=== PATIENT | male | born 1960 | race Caucasian/White ===

== ENCOUNTER 2018-07-03 09:06 | Outpatient (REF) | payer MEDICAID, SELFPAY ==
[2018-07-03 22:24] LABS: Anion Gap 9.8 mmol/L (3-11); BUN 19 mg/dL (7-18); CO2 26.2 mmol/L (21.0-32.0); CREATININE 0.81 mg/dL (0.70-1.30); Calcium 9.3 mg/dL (8.5-10.1); Chloride 102 mmol/L (98-107); Glucose 95 mg/dL (70-100); Potassium 4.5 mmol/L (3.5-5.1); Sodium 138 mmol/L (136-145)
[2018-07-07 10:37] LABS: PSA, Screening 0.4 ng/ml (0-4.5)
== END 2018-07-03 09:26 ==
LOC: NCHCN 09:06
PROVIDERS: PCP Internal Medicine; Visit Provider Internal Medicine
DX: R03.0 Elevated blood-pressure reading, without diagnosis of hypertension (principal); R05 Cough; Z12.5 Encounter for screening for malignant neoplasm of prostate; E66.9 Obesity, unspecified; Z00.00 Encounter for general adult medical examination without abnormal findings
CPT/HCPCS: 80048; 84153

== ENCOUNTER 2020-08-02 15:51 | Outpatient (REF) | payer MEDICAID, SELFPAY ==
[2020-08-02 15:44] LABS: ALT 39 U/L (16-63); AST 29 U/L (15-37); Albumin 3.9 g/dL (3.4-5.0); Alkaline Phosphatase 112 U/L (46-116); Anion Gap 9.7 mmol/L (3-11); BUN 31 mg/dL (7-18); Bilirubin, Total 0.5 mg/dL (0.2-1.0); CO2 26.3 mmol/L (21.0-32.0); CREATININE 0.8 mg/dL (0.70-1.30); Calcium 9.1 mg/dL (8.5-10.1); Calculated LDL 133 mg/dL (<100); Chloride 106 mmol/L (98-107); Cholesterol 202 mg/dL (<200); Glucose 105 mg/dL (74-106); HDL Cholesterol 50 mg/dL (40-60); Potassium 4.6 mmol/L (3.5-5.1); Sodium 142 mmol/L (136-145); Total Protein 7.1 g/dL (6.4-8.2); Triglyceride 96 mg/dL (<150)
== END 2020-08-02 15:52 | disposition home or self-care (01) ==
LOC: NCHCN 15:51
PROVIDERS: PCP Internal Medicine; Visit Provider Internal Medicine
DX: E03.0 Congenital hypothyroidism with diffuse goiter (principal); E78.5 Hyperlipidemia, unspecified
CPT/HCPCS: 80053; 80061

== ENCOUNTER 2020-08-16 01:43 | Outpatient (CLI) | payer MEDICAID, SELFPAY ==
--- NOTE | 2020-08-16 10:36 | DI.RAD_ITS ---
Exam(s) XR ARTHRITIS SERIES EXAM: XR ARTHRITIS SERIES CLINICAL HISTORY: LOCALIZED SWELLING OF FINGERS OF HANDS,BILAT,R22.33,5TH PIP JT,? OA VS OTHE TECHNIQUE: COMPARISON: No exams were available for comparison FINDINGS: Two views both hands and both wrists were obtained. There are bilateral ulnar minus variance is kyle od otherwise carpal alignment appears fairly well maintained. Minimal degenerative changes of the ca rpal articulations noted. The cartilaginous joint spaces of the IP joints appear mildly narrowed, particularly involving the PI P joints of both little fingers. There are hypertrophic marginal osteophytes seen at the PIP joints of little fingers as well. Minimal marginal osteophyte formation noted multiple other IP joints. Th ere may be slight loss of the cartilaginous joint spaces of the 3rd MCP joints bilaterally. IMPRESSION: Mild degenerative changes as described above. RADIATION DOSE DELIVERED: Total DLP
== END 2020-08-16 02:03 ==
PROVIDERS: PCP Internal Medicine; Visit Provider Internal Medicine
DX: M19.032 Primary osteoarthritis, left wrist (principal); M19.031 Primary osteoarthritis, right wrist
CPT/HCPCS: 73120

== ENCOUNTER 2021-10-03 21:09 | Outpatient (REF) | payer MEDICAID, SELFPAY ==
[2021-10-03 16:05] LABS: Anion Gap 9.4 mmol/L (3-11); BUN 26 mg/dL (7-18); CO2 24.6 mmol/L (21.0-32.0); CREATININE 0.7 mg/dL (0.70-1.30); Calcium 8.8 mg/dL (8.5-10.1); Calculated LDL 116 mg/dL (<100); Chloride 106 mmol/L (98-107); Cholesterol 193 mg/dL (<200); Glucose 101 mg/dL (74-106); HDL Cholesterol 61 mg/dL (40-60); Potassium 4.1 mmol/L (3.5-5.1); Sodium 140 mmol/L (136-145); Triglyceride 84 mg/dL (<150)
== END 2021-10-03 21:10 | disposition home or self-care (01) ==
LOC: NCHCN 21:09
PROVIDERS: PCP Internal Medicine; Visit Provider Internal Medicine
DX: E78.5 Hyperlipidemia, unspecified (principal); R03.0 Elevated blood-pressure reading, without diagnosis of hypertension
CPT/HCPCS: 80048; 80061

== ENCOUNTER 2022-10-31 16:26 | Outpatient (REF) | payer MEDICAID, SELFPAY ==
[2022-10-31 17:59] LABS: Hemoglobin A1C 6.2 % (<5.7)
[2022-10-31 18:19] LABS: ALT 31 U/L (16-63); AST 22 U/L (15-37); Albumin 3.9 g/dL (3.4-5.0); Alkaline Phosphatase 113 U/L (46-116); Anion Gap 10.3 mmol/L (3-11); BUN 26 mg/dL (7-18); Bilirubin, Total 0.4 mg/dL (0.2-1.0); CO2 23.7 mmol/L (21.0-32.0); CREATININE 0.8 mg/dL (0.70-1.30); Calculated LDL 133 mg/dL (<100); Chloride 103 mmol/L (98-107); Cholesterol 201 mg/dL (<200); Estimated GFR 98.83 (mL/min/1.73m2); Glucose 101 mg/dL (74-106); HDL Cholesterol 58 mg/dL (40-60); Potassium 4.6 mmol/L (3.5-5.1); Sodium 137 mmol/L (136-145); Total Protein 7.2 g/dL (6.4-8.2); Triglyceride 51 mg/dL (<150)
[2022-11-01 19:26] LABS: PSA, Screening 0.7 ng/mL (<=4.5)
== END 2022-10-31 16:27 | disposition home or self-care (01) ==
LOC: NCHCN 16:26
PROVIDERS: PCP Internal Medicine; Visit Provider Internal Medicine
DX: R73.09 Other abnormal glucose (principal); R03.0 Elevated blood-pressure reading, without diagnosis of hypertension; E66.9 Obesity, unspecified; Z12.5 Encounter for screening for malignant neoplasm of prostate; E78.5 Hyperlipidemia, unspecified
CPT/HCPCS: 80053; 80061; 84153; 83036

== ENCOUNTER 2023-01-04 06:24 | Day surgery (SDC) | payer MEDICAID, SELFPAY ==
--- NOTE | 2023-01-03 15:48 | W.COLOREPORT ---
Date of service: 01/04/23 Time of Service: 08:00 Colonoscopy Report Date of procedure: 01/04/23 Pre-op diagnosis general: crc screening Post-op diagnosis procedure note: other (Sigmoid diverticula and internal hemorrhoids) Surgeon: Kassie Jama Anesthesia Type: General:No Airway Estimated blood loss (mL): 0 Pathology: none sent Complications: None Disposition: no change Prep: Miralax/Dulcolax Retraction Time: 7 Procedure Description: After informed consent was obtained the patient was taken to the procedure room and placed in a left decubitous position. Monitors were applied and a time out was done. The patients name, date of , procedure, allergies to medications and metal in their body was reviewed. The patient was then sedated. Once sedated and comfortable a rectal exam was done. External exam was normal. Internal exam revealed a normal sphincter tone and no palpable masses. The prostate without masses. The scope was then introduced and retrofelexed. Grade 2 internal hemorrhoids x1 column were identified. The scope was then advanced to the cecum without difficulty. The TI and appendiceal orifice were identified. The prep was BBPS 3 in all segments for total of 9. The scope was then slowly retracted over 7 minutes back into the rectum. There are no polyps or AVMs visualized today. He has minor diverticula confined in the sigmoid colon. There is no signs of active bleeding or infection. The scope was removed and the patient was woken up and taken back to Same day surgery in stable condition. The patient tolerated the procedure well and there were no immediate complications. Follow up: The patient should follow up in 10 years unless they develop changes in bowel habits or other new gastrointestinal complaints.
--- NOTE | 2023-01-03 15:49 | PDOC.DSDIS_ITS ---
Date of service: 01/04/23 Time of Service: 08:07 Discharge Plan Disposition Patient Disposition: Home Condition: Good Discharge Details Reason For Visit: Colon scope Attending Provider: Kassie Jama Primary Care Provider: Damaris Khan Home Meds and New Rx's Prescriptions: Discontinued polyethylene glycol 3350 17 gram/dose powder 238 g PO ONCE Qty: 238 0RF Rx Instructions: take per colonoscopy instructions bisacodyl [Dulcolax (bisacodyl)] 5 mg tablet,delayed release (DR/EC) 5 mg PO ONCE Qty: 4 0RF Rx Instructions: take per colonoscopy instructions Discharge Instructions Additional Instructions: DSU Colonoscopy Post- Op Instructions Instructions for Everyone who is given Anesthesia: For your safety, please do the following for the next twenty-four (24) hours: *Do Not operate a motor vehicle (car, truck, motorcycle, etc.) *Do Not drink alcoholic beverages or use any recreational drugs for the first 24 hours or while taking pain medications. The medications in your body may have a reaction that can be dangerous. *Do Not make any important decisions or sign any important papers. Findings: Diverticula-make sure you are moving your bowels on a regular basis and you are not straining to go to the bathroom. If you find you are probably having problems with constipation or straining, then it is recommended you start a fiber supplement such as Metamucil daily Follow up: Repeat colonoscopy in 10 years time 1. No lifting over 20 pounds or strenuous activity for the first 24 hours after your procedure. After 24 hours there are no restrictions on your activity but you may feel fatigued for a few days. 2. After you arrive home you may have a light meal and return to your normal diet as you can tolerate it without feeling sick to your stomach. 3. You may have a bloated, gaseous feeling in your belly (abdomen) after a colonoscopy. Passing gas and belching will help. Walking or lying down on your left side with your knees flexed may relieve the discomfort. Call the office at [phone] (Office) or [phone] (Hospital) right away if you notice any of the following: a.Vomiting of blood or ?coffee ground stools?. b.Rectal bleeding 1Tbsp, blood clots or continuous bleeding. c.Severe belly (abdominal) pain. d.A hard distended belly (abdomen) and an inability to pass gas. 4. Please don?t expect to have a normal BM (bowel movement) for 2-3 days after your procedure. 5. If there are questions regarding the findings of your procedure, please contact your doctor 6. If you are unable to contact your doctor with a problem, contact the hospital at [phone]. 7. Continue all your regular medications unless directed otherwise. I understand the above instructions and have no questions. Signature of Patient or Adult Escort Name of Responsible Adult Escort Signature of Nurse Date/Time Activity:: See above Diet:: See above Discharge Orders Discharge Orders: Discharge Order (Routine); Ordered 01/04/23 Ordered By: Kassie Jama DS: Diagnosis Discharge Diagnosis (1) Screening for malignant neoplasm of colon performed: Status: Acute Asessment and Plan: The patient is seen and examined after their colonoscopy.? The patient has been able to pass gas.? They are not having abdominal pain.? They have been able to tolerate liquids and a snack.? They do not have any nausea or vomiting.? They are not having any chest pain or shortness of breath.??? They are not having any rectal bleeding. Their vital signs have been stable-see nursing notes. We discussed findings during their colonoscopy, and any biopsies that were done/polyps that were removed. The patient will be sent a letter with any biopsy results, and when to repeat the colonoscopy.-see discharge instructions. Patient was given explicit instructions to follow-up regarding colonoscopy-refer to discharge instructions.? We reviewed resumption of medications. Patient verbalized understanding and discharged in stable and satisfactory condition- See nursing notes. (2) Diverticula of colon: Status: Acute (3) Internal hemorrhoids without complication: Status: Acute
[2023-01-04 06:30] VITALS: BP 132/88; PULSE 65; RESP 18; TEMP 36.6; O2SAT 98
[2023-01-04] MEDS: Lactated Ringers 1,000 ML 80 ML IV (06:45)
--- NOTE | 2023-01-04 06:45 | ANES.PREOP_ITS ---
General Info Date of Service Date Performed: 01/04/23 Height: 5 ft 10 in Weight: 97.8 kg Body Mass Index (BMI): 30.9 Surgical Procedure: Operation Date: 01/04/23 07:35 Proposed Procedure Side Surgeon kip Jama, Meds Allergies and Home Medications Allergies Allergy/AdvReac Type Severity Reaction Status Date / Time No Known Allergies Allergy Unverified 01/04/23 06:34 Current Visit Medications: Current Medications Generic Name Dose Route Start Last Admin Trade Name Freq PRN Reason Stop Dose Admin Hyoscyamine Sulfate 0.125 mg 01/04/23 11:32 Hyoscyamine 0.125 Mg Sl/Oral/Chew SL 02/03/23 11:31 DIRECTED PRN Ringer's Solution 1,000 mls @ 80 mls/hr 01/04/23 06:00 IV 02/02/23 23:59 INFUSION NABIL IV Miscellaneous Supplies 1 each 01/04/23 06:00 Iv Access IV 02/02/23 23:59 DIRECTED NABIL Ondansetron HCl 4 mg 01/04/23 11:32 Ondansetron 4 Mg/2 Ml Vial IVP 02/03/23 11:31 Q4H PRN PRN Nausea / Vomiting Sodium Chloride 0 ml 01/04/23 06:00 Normal Saline Flush 10 Ml Syr IV 02/02/23 23:59 PRN PRN Sodium Chloride 0 ml 01/04/23 06:00 Normal Saline 10 Ml Vial IJ 02/02/23 23:59 DIRECTED PRN Sterile Water 0 ml 01/04/23 06:00 Water,Injection,Sterile 10 Ml Vial IJ 02/02/23 23:59 DIRECTED PRN PFSH Active Problems Active Problems: Problem Status Onset Code Screening for malignant neoplasm of colon performed Z12.11 Surgical History Surgical History History of colonoscopy (~05/28/12) Tobacco Smoking/Tobacco Use Status: Former Tobacco Use Alcohol Alcohol Intake: current Alcohol intake frequency: a few times a week Alcohol type: beer Substance Use Substance use: Never Substance use type: does not use Details: alcohol: t-2, one beer Vital Signs and Lab Results Vital Signs Most Recent Vital Signs in EMR: Most Recent Vital Signs Temp Pulse Resp BP Pulse Ox 36.6 C 65 18 132/88 98 01/04/23 06:30 01/04/23 06:30 01/04/23 06:30 01/04/23 06:30 01/04/23 06:30 Lab Results Blood Type / Crossmatch: No Data to Display Complete Blood Count: No Data to Display Complete Metabolic Panel: No Data to Display Liver Function Panel: No Data to Display Coagulation Panel: No Data to Display Cardiac Panel: No Data to Display Arterial Blood Gas: No Data to Display Venous Blood Gas: No Data to Display Pancreas Panel: 2 No Data to Display Thyroid Panel: No Data to Display Infectious Disease: No Data to Display Blood Cultures: No Data to Display Toxicology Panel: No Data to Display Anesthesia Assessment and Plan Anesthesia History Personal History: No History of Anesthesia Complications Family History: No Family History of Anesthesia Complications Exercise Tolerance Exercise Tolerance: Metabolic Equivalents>4 Pertinent Negatives Pertinent Negatives: No Symptoms of GERD, No Major Cardiovascular Symptoms or Complaints, No Major Pulmonary Symptoms or Complaints and No History of CVA/TIA Cardiac & Pulmonary Exam Cardiac Exam: Normal S1/S2 Heart Sounds Pulmonary Exam: Clear Bilateral Breath Sounds Implantable Cardiac Device Does patient have a Pacemaker or an ICD?: No Airway Exam Known Difficult Airway: No Mallampati Class: 2 Mouth Opening: Normal (> 3cm) Thyromental Distance: Greater than 3 cm Neck Range of Motion: Full ROM Neck Circumference: Normal Teeth Condition: Normal Dentition and Generalized Poor Dentition ASA Classification ASA Score: ASA 2 Emergency Case?: No NPO Status NPO Status: NPO Clears >2 hours, Solids >8 hours Anesthesia Plan Resuscitation Status: Full Code Anesthesia Technique: General Anesthesia Airway Planned: Natural Airway Monitors Used: Standard Monitors Preoperative Comments:: Bilateral paresthesias of hand with L>R
[2023-01-04 06:47] VITALS: BMI 30.9
[2023-01-04 08:03] VITALS: BP 115/71; PULSE 59; RESP 16; TEMP 36.7; O2SAT 95
[2023-01-04 08:33] VITALS: BP 134/80; PULSE 55; RESP 16; TEMP 36.9; O2SAT 97
--- NOTE | 2023-01-04 09:35 | W.ANESPOSTOP ---
Postoperative Evaluation Date, Time and Location Date Performed: 01/04/23 Time Performed: 08:05 Patient Location: Day Surgery Unit Vital Signs Most Recent Imported Vital Signs: Most Recent Vital Signs Temp Pulse Resp BP Pulse Ox 36.9 C 55 L 16 134/80 97 01/04/23 08:33 01/04/23 08:33 01/04/23 08:33 01/04/23 08:33 01/04/23 08:33 Pain Score Most Recent Pain Score: Most Recent Pain Score Pain Level 0 01/04/23 08:33 Assessment Mental Status: Awake (Alert & Oriented to Patient Baseline) Airway and Respiratory Function: Patent airway with normal (patient baseline) respiratory exam Cardiovascular Function: Hemodynamically Stable Hydration Status: Adequately Hydrated Nausea & Vomiting: No Nausea or Vomiting Pain: Pt. Denies Any Pain Peripheral Nerve Block: Patient did not receive a nerve block
== END 2023-01-04 09:15 | disposition home or self-care (01) ==
PROVIDERS: PCP Internal Medicine; Visit Provider Surgery
PROC: 0DJD8ZZ Inspection of Lower Intestinal Tract, Via Natural or Artificial Opening Endoscopic (ICD-10-PCS; CPT 45378; principal; 2023-01-04 07:30)
DX: Z12.11 Encounter for screening for malignant neoplasm of colon (principal); K57.30 Diverticulosis of large intestine without perforation or abscess without bleeding; K64.1 Second degree hemorrhoids
CPT/HCPCS: 45378; J2001

== ENCOUNTER 2023-09-04 13:59 | Outpatient (REF) | payer MEDICARE, MEDICAID, SELFPAY ==
[2023-09-04 16:04] LABS: Abs Immature Grans 0.01 10^3/uL (0.0-0.06); Absolute Basophil Count 0.03 10^3/uL (0.0-0.2); Absolute Eosinophil Count 0.29 10^3/uL (0.0-0.7); Absolute Lymphocyte Count 1.62 10^3/uL (1.2-3.4); Absolute Monocyte Count 0.61 10^3/uL (0.1-0.8); Absolute Neutrophil Count 3.53 10^3/uL (1.2-6.7); Basophils % 0.5 %; Eosinophils % 4.8 %; HCT 41.8 % (40.0-50.0); Immature Grans % 0.2 %; Lymphocytes % 26.6 %; MCH 30.6 pg (27.0-33.0); MCHC 33.5 % (32.0-36.0); MCV 91 fL (80-95); MPV 9.2 fL (8.0-11.0); Neutrophils % 57.9 %; Platelet Count 402 10^3/uL (130-400); RBC 4.58 10^6/uL (4.36-5.78); RDW 13.3 % (11.8-14.1); RDW-SD 45.1 fL; WBC 6.09 10^3/uL (4.4-10.8)
[2023-09-04 16:12] LABS: ESR 12 mm/hr (0-20)
[2023-09-04 17:03] LABS: ALT 35 U/L (16-63); AST 27 U/L (15-37); Albumin 3.9 g/dL (3.4-5.0); Alkaline Phosphatase 123 U/L (46-116); Anion Gap 7.6 mmol/L (3-11); BUN 22 mg/dL (7-18); Bilirubin, Total 0.52 mg/dL (0.2-1.0); CO2 27.4 mmol/L (21.0-32.0); CREATININE 0.8 mg/dL (0.70-1.30); Calcium 9.3 mg/dL (8.5-10.1); Chloride 107 mmol/L (98-107); Estimated GFR 98.21 (mL/min/1.73m2); Glucose 108 mg/dL (74-106); Potassium 4.7 mmol/L (3.5-5.1); Sodium 142 mmol/L (136-145); Total Protein 7.7 g/dL (6.4-8.2); Vitamin B12 483 pg/mL (193-986)
[2023-09-04 22:34] LABS: CRP, High Sensitivity 3.22 mg/L (See Note)
== END 2023-09-04 14:00 | disposition home or self-care (01) ==
LOC: NCHCN 13:59
PROVIDERS: PCP Internal Medicine; Visit Provider Internal Medicine
DX: M26.629 Arthralgia of temporomandibular joint, unspecified side (principal)
CPT/HCPCS: 80053; 85652; 86141; 82607; 85025

== ENCOUNTER → 2023-09-19 01:07 | Outpatient (CLI) | payer MEDICARE, MEDICAID, SELFPAY ==
--- NOTE | 2023-09-19 | DI.RAD_ITS ---
Exam(s) XR WRIST LT COMPLETE EXAM: XR WRIST LT COMPLETE CLINICAL HISTORY: LT WRIST PAIN,M25.532. TECHNIQUE: 2D digital imaging was performed of the left wrist. Three images were obtained. PA, obl ique and lateral views were obtained. COMPARISON: CR XR ARTHRITIS SERIES from 08/16/2020 FINDINGS: BONES: No acute fracture is present. No bony destructive lesion is seen. JOINTS: The carpal bones are normally aligned. There is again seen a ulna minus. There is widening o f the scapholunate joint with proximal migration of the capitate. There is rotation of the lunate terese ne. Degenerative changes are seen in the wrist particularly at the 1st CMC joint. There also appear s to be volar tilt of the lunate. SOFT TISSUE: There is soft tissue swelling of the wrist. IMPRESSION: 1. Findings of widening of the scapholunate distance suggesting ligament tear with proximal migration of the capitate. There is also volar tilt of the lunate. 2. Ulna minus is present. 3. Mild degenerative changes are seen at the 1st CMC joint in the lateral radiocarpal joint. DATA REPOSITORY: RADIATION DOSE DELIVERED:
--- NOTE | 2023-09-19 | DI.RAD_ITS ---
Exam(s) XR HIP RT COMPLETE AP PELVIS EXAM: XR HIP RT COMPLETE AP PELVIS CLINICAL HISTORY: RT HIP PAIN,M25.551. TECHNIQUE: 2D digital imaging was performed of the right hip. Two images were obtained. AP pelvis a nd lateral right hip views were obtained. COMPARISON: No exams were available for comparison FINDINGS: BONES: No acute fracture is present. No bony destructive lesion is seen. JOINTS: There is loss of the superior joint space in the right hip with subchondral sclerosis. There osteophytes seen at the femoral head on the right. The left hip is well maintained. SOFT TISSUE: Normal. IMPRESSION: Marked degenerative changes seen in the right hip. DATA REPOSITORY: RADIATION DOSE DELIVERED:
--- NOTE | 2023-09-19 | DI.RAD_ITS ---
Exam(s) XR KNEE RT 3V AP,LAT,KORTNEY EXAM: XR KNEE RT 3V AP,LAT,KORTNEY CLINICAL HISTORY: RT KNEE PAIN,M25.561. TECHNIQUE: 2D digital imaging was performed of the right knee. Three views obtained. AP, lateral an d PA tunnel views were obtained. COMPARISON: No priors for comparison. FINDINGS: There are degenerative changes seen in the knee involving all 3 joint compartments characterized by j oint space narrowing and osteophytes. The findings are most marked in the femoral tibial joint. The re is a small joint effusion. The bones are normally mineralized and intact. The soft tissues are u nremarkable. IMPRESSION: Osteoarthritis of the right knee. DATA REPOSITORY: RADIATION DOSE DELIVERED:
--- NOTE | 2023-09-19 09:35 | DI.RAD_ITS ---
Exam(s) XR KNEE LT 3V AP,LAT,KORTNEY EXAM: XR KNEE LT 3V AP,LAT,KORTNEY CLINICAL HISTORY: LT KNEE PAIN, M25.562. TECHNIQUE: 2D digital imaging was performed of the left knee. Four images were obtained. AP, later al and PA tunnel views were obtained. COMPARISON: No exams were available for comparison FINDINGS: There are degenerative changes in the left knee involving all 3 joint compartments and characterized by joint space narrowing and osteophytes. The findings are most marked in the lateral femoral tibial joint. There is chondrocalcinosis in the femoral tibial joints. There is a tiny joint effusion pre sent. There is an old well corticated osseous density adjacent to the anterior tibial tuberosity. IMPRESSION: Osteoarthritis of the knee particularly involving the lateral femoral tibial joint. DATA REPOSITORY: RADIATION DOSE DELIVERED:
== END ==
PROVIDERS: PCP Internal Medicine; Visit Provider Internal Medicine
DX: M25.551 Pain in right hip (principal); M25.532 Pain in left wrist; M25.561 Pain in right knee; M25.562 Pain in left knee; M16.11 Unilateral primary osteoarthritis, right hip; M17.11 Unilateral primary osteoarthritis, right knee; M17.12 Unilateral primary osteoarthritis, left knee; M19.032 Primary osteoarthritis, left wrist
CPT/HCPCS: 73562; 73110; 73502

== ENCOUNTER 2023-10-29 15:47 | Outpatient (REF) | payer MEDICARE, MEDICAID, SELFPAY ==
[2023-10-29 14:25] LABS: Hemoglobin A1C 6.1 % (<5.7)
[2023-10-29 14:32] LABS: ALT 32 U/L (16-63); AST 26 U/L (15-37); Albumin 3.8 g/dL (3.4-5.0); Alkaline Phosphatase 118 U/L (46-116); Anion Gap 6.4 mmol/L (3-11); BUN 19 mg/dL (7-18); Bilirubin, Total 0.38 mg/dL (0.2-1.0); CO2 28.6 mmol/L (21.0-32.0); CREATININE 0.8 mg/dL (0.70-1.30); Calcium 9.1 mg/dL (8.5-10.1); Calculated LDL 120 mg/dL (<100); Chloride 106 mmol/L (98-107); Cholesterol 193 mg/dL (<200); Estimated GFR 98.21 (mL/min/1.73m2); Glucose 101 mg/dL (74-106); HDL Cholesterol 64 mg/dL (40-60); Potassium 4.3 mmol/L (3.5-5.1); Sodium 141 mmol/L (136-145); Total Protein 7.1 g/dL (6.4-8.2); Triglyceride 46 mg/dL (<150)
== END 2023-10-29 15:48 | disposition home or self-care (01) ==
LOC: NCHCN 15:47
PROVIDERS: PCP Internal Medicine; Visit Provider Internal Medicine
DX: E78.5 Hyperlipidemia, unspecified (principal); R73.03 Prediabetes
CPT/HCPCS: 80053; 80061; 83036

== ENCOUNTER → 2023-11-01 08:31 | Outpatient (BNVA) | payer MEDICARE, MEDICAID, SELFPAY | PROVIDERS: PCP Internal Medicine; Referring Provider Internal Medicine | DX: M16.11 Unilateral primary osteoarthritis, right hip (principal) | CPT/HCPCS: 99213 ==

== ENCOUNTER 2023-11-18 02:10 | Outpatient (CLI) | payer MEDICARE, MEDICAID, SELFPAY ==
--- NOTE | 2023-11-18 | DI.US_ITS ---
Exam(s) US AAA SCREENING EXAM: US AAA SCREENING CLINICAL HISTORY: SCREENING FOR AAA,Z87.891, EX SMOKER COMPARISON: No exams were available for comparison FINDINGS: Abdominal Aorta: Proximal: 2.4 x 2.4 cm Mid: 1.9 x 2.0 cm Distal: 2.1 x 2.0 cm Iliac's: Right: 1.1 x 1.1 cm Left: 1.2 x 1.3 cm No significant atherosclerotic disease is seen. IMPRESSION: No evidence of abdominal aortic aneurysm. DATA REPOSITORY:
== END 2023-11-18 02:30 ==
LOC: DI 02:10
PROVIDERS: PCP Internal Medicine; Visit Provider Internal Medicine
DX: Z13.6 Encounter for screening for cardiovascular disorders (principal); Z87.891 Personal history of nicotine dependence
CPT/HCPCS: 76706

== ENCOUNTER 2023-12-23 02:04 | Outpatient (CLI) | payer MEDICARE, MEDICAID, SELFPAY ==
[2023-12-23 10:30] LABS: HCT 39.6 % (40.0-50.0); HGB 13.2 g/dL (13.5-17.5); MCH 30.6 pg (27.0-33.0); MCHC 33.3 % (32.0-36.0); MCV 92 fL (80-95); MPV 8.6 fL (8.0-11.0); Platelet Count 388 10^3/uL (130-400); RBC 4.32 10^6/uL (4.36-5.78); RDW 13.4 % (11.8-14.1); RDW-SD 45.6 fL; WBC 6.38 10^3/uL (4.4-10.8)
[2023-12-23 10:46] LABS: Anion Gap 11.1 mmol/L (3-11); BUN 20 mg/dL (7-18); CO2 28.9 mmol/L (21.0-32.0); CREATININE 0.7 mg/dL (0.70-1.30); Calcium 9.2 mg/dL (8.5-10.1); Chloride 104 mmol/L (98-107); Estimated GFR 102.25 (mL/min/1.73m2); Glucose 102 mg/dL (74-106); Potassium 4.2 mmol/L (3.5-5.1); Sodium 144 mmol/L (136-145)
== END 2023-12-23 02:05 | disposition home or self-care (01) ==
LOC: LBO 02:04
PROVIDERS: PCP Internal Medicine; Visit Provider Student in an Organized Health Care Education/Training Program
DX: Z01.818 Encounter for other preprocedural examination (principal); M16.11 Unilateral primary osteoarthritis, right hip
CPT/HCPCS: 36415; 80048; 85027; 99024

== ENCOUNTER 2023-12-23 11:46 | Outpatient (CLI) | payer MEDICARE, MEDICAID, SELFPAY ==
--- NOTE | 2023-12-23 13:29 | DI.RAD_ITS ---
Exam(s) XR PELVIS AP EXAM: XR PELVIS AP CLINICAL HISTORY: right hip DJD. TECHNIQUE: 2D digital imaging was performed. Single AP view. COMPARISON: CR XR HIP RT COMPLETE AP PELVIS from 09/19/2023 FINDINGS: BONES: No acute fracture is present. No bony destructive lesion is seen. JOINTS: No dislocation present. Severe narrowing of the right hip joint space. Of the [id number] appearance. Flattening of the superior right femoral head and remodeling of the acetabulum. Periart icular sclerosis. Large subchondral cyst in the right femoral head. Left hip joint space is maintai michael. Mild periarticular spurring. SOFT TISSUE: Vest ectomy clips peer IMPRESSION: End-stage degenerative changes of the right hip. DATA REPOSITORY: RADIATION DOSE DELIVERED:
== END 2023-12-23 11:47 | disposition home or self-care (01) ==
LOC: DIORS 11:46
PROVIDERS: PCP Internal Medicine; Visit Provider Physician Assistant
DX: M16.11 Unilateral primary osteoarthritis, right hip (principal)
CPT/HCPCS: 72170

== ENCOUNTER 2024-01-08 06:02 | Day surgery (SDC) | payer MEDICARE, MEDICAID, SELFPAY ==
[2024-01-08] VITALS (28 sets, daily range): BP systolic 110–180; BP diastolic 61–103; PULSE 46–66; RESP 11–18; TEMP 35.8–36.4; O2SAT 94–100; BMI 30.7
[2024-01-08] MEDS: Acetaminophen 500 MG TAB 1000 MG PO (06:29)
[2024-01-08] MEDS: Gabapentin 300 MG CAP PO (06:29)
[2024-01-08] MEDS: Celecoxib 200 MG CAP 400 MG PO (06:29)
[2024-01-08] MEDS: Lactated Ringers 500 ML 30 ML IV (06:30)
--- NOTE | 2024-01-08 06:57 | W.ANESPRE ---
General Info Date of Service Date Performed: 01/08/24 Height: 5 ft 10 in Weight: 97.3 kg Body Mass Index (BMI): 30.7 Surgical Procedure: Operation Date: 01/08/24 07:50 Proposed Procedure Side Surgeon p Hip Total Hip Anterior Right Michael Coleman MD Meds Allergies and Home Medications Allergies Allergy/AdvReac Type Severity Reaction Status Date / Time No Known Allergies Allergy Verified 01/08/24 06:08 Home Medication ?Medication ?Instructions ?Recorded atorvastatin 20 mg tablet 20 mg PO DAILY 11/01/23 sildenafil 100 mg tablet (Viagra) 100 mg PO DAILY PRN 11/01/23 losartan 25 mg tablet 25 mg PO DAILY 12/23/23 Current Visit Medications: Current Medications Generic Name Dose Route Start Last Admin Trade Name Freq PRN Reason Stop Dose Admin Acetaminophen 1,000 mg 01/08/24 06:00 01/08/24 06:29 Acetaminophen 500 Mg Tab PO 01/08/24 23:59 1,000 mg PREOP NABIL Administration Celecoxib 400 mg 01/08/24 06:00 01/08/24 06:29 Celecoxib 200 Mg Cap PO 01/08/24 23:59 400 mg PREOP NABIL Administration Gabapentin 300 mg 01/08/24 06:00 01/08/24 06:29 Gabapentin 300 Mg Cap PO 01/08/24 23:59 300 mg PREOP NABIL Administration Cefazolin Sodium/Dextrose 2 gm in 50 mls @ 100 mls/hr 01/08/24 06:00 Ancef Duplex IVPB 01/08/24 23:59 PREOP NABIL Tranexamic Acid/Sodium Chloride 1,000 mg in 100 mls @ 600 mls/hr 01/08/24 06:00 IVPB 01/08/24 23:59 PREOP NABIL Ringer's Solution 500 mls @ 30 mls/hr 01/08/24 06:20 01/08/24 06:30 IV 02/07/24 06:19 30 mls/hr INFUSION NABIL Administration IV Miscellaneous Supplies 1 each 01/08/24 06:00 Iv Access IV 01/08/24 23:59 DIRECTED NABIL Sodium Chloride 0 ml 01/08/24 06:00 Normal Saline Flush 10 Ml Syr IV 01/08/24 23:59 PRN PRN Sodium Chloride 0 ml 01/08/24 06:00 Normal Saline 10 Ml Vial IJ 01/08/24 23:59 DIRECTED PRN Sterile Water 0 ml 01/08/24 06:00 Water,Injection,Sterile 10 Ml Vial IJ 01/08/24 23:59 DIRECTED PRN PFSH Active Problems Active Problems: Problem Status Onset Code Hypertension Chronic I10 Prediabetes Acute R73.03 Erectile dysfunction Acute N52.9 Hyperlipidemia Acute E78.5 Osteoarthritis of right hip Chronic M16.11 Internal hemorrhoids without complication Acute K64.8 Diverticula of colon Acute K57.30 Screening for malignant neoplasm of colon performed Acute Z12.11 Surgical History Surgical History History of colonoscopy (~12/2022) Tobacco Smoking/Tobacco Use Status: Former Tobacco Use Alcohol Alcohol Intake: current Alcohol intake frequency: a few times a week Alcohol type: beer Substance Use Substance use: Never Substance use type: does not use Vital Signs and Lab Results Vital Signs Most Recent Vital Signs in EMR: Most Recent Vital Signs Temp Pulse Resp BP Pulse Ox 36.2 C L 66 18 137/85 98 01/08/24 06:00 01/08/24 06:00 01/08/24 06:00 01/08/24 06:00 01/08/24 06:00 Lab Results Blood Type / Crossmatch: No Data to Display Complete Blood Count: White Blood Count 6.38 10^3/uL (4.4-10.8) 12/23/23 10:00 Red Blood Count 4.32 10^6/uL (4.36-5.78) L 12/23/23 10:00 Hemoglobin 13.2 g/dL (13.5-17.5) L 12/23/23 10:00 Hematocrit 39.6 % (40.0-50.0) L 12/23/23 10:00 Platelet Count 388 10^3/uL (130-400) 12/23/23 10:00 Complete Metabolic Panel: Sodium 144 mmol/L (136-145) 12/23/23 10:00 Potassium 4.2 mmol/L (3.5-5.1) 12/23/23 10:00 Chloride 104 mmol/L (98-107) 12/23/23 10:00 Carbon Dioxide 28.9 mmol/L (21.0-32.0) 12/23/23 10:00 BUN 20 mg/dL (7-18) H 12/23/23 10:00 Creatinine 0.7 mg/dL (0.70-1.30) 12/23/23 10:00 Est GFR (CKD-EPI 2020) 102.25 (mL/min/1.73m2) 12/23/23 10:00 Calcium 9.2 mg/dL (8.5-10.1) 12/23/23 10:00 Glucose 102 mg/dL (74-106) 12/23/23 10:00 Liver Function Panel: No Data to Display Coagulation Panel: No Data to Display Cardiac Panel: No Data to Display Arterial Blood Gas: No Data to Display Venous Blood Gas: No Data to Display Pancreas Panel: No Data to Display Thyroid Panel: No Data to Display Infectious Disease: No Data to Display Blood Cultures: No Data to Display Toxicology Panel: No Data to Display Anesthesia Assessment and Plan Anesthesia History Personal History: No History of Anesthesia Complications Family History: No Family History of Anesthesia Complications Exercise Tolerance Exercise Tolerance: Metabolic Equivalents>4 Pertinent Negatives Pertinent Negatives: No Symptoms of GERD, No Major Cardiovascular Symptoms or Complaints, No Major Pulmonary Symptoms or Complaints and No History of CVA/TIA Cardiac & Pulmonary Exam Cardiac Exam: Normal S1/S2 Heart Sounds Pulmonary Exam: Clear Bilateral Breath Sounds Implantable Cardiac Device Does patient have a Pacemaker or an ICD?: No Airway Exam Known Difficult Airway: No Mallampati Class: 2 Mouth Opening: Normal (> 3cm) Thyromental Distance: Greater than 3 cm Neck Range of Motion: Full ROM Neck Circumference: Normal Teeth Condition: Normal Dentition ASA Classification ASA Score: ASA 2 Emergency Case?: No NPO Status NPO Status: NPO Clears >2 hours, Solids >8 hours Anesthesia Plan Resuscitation Status: Full Code Anesthesia Technique: Spinal Anesthesia Airway Planned: Natural Airway Monitors Used: Standard Monitors
--- NOTE | 2024-01-08 07:19 | W.PM.DSUDISC ---
Date of service: 01/08/24 Time of Service: 07:19 Discharge Plan Disposition Patient Disposition: Home Condition: Good Discharge Details Reason For Visit: R THR Attending Provider: Michael Coleman Primary Care Provider: Damaris Khan Home Meds and New Rx's Prescriptions: New celecoxib 200 mg capsule 200 mg PO BID Qty: 60 0RF aspirin 81 mg tablet,delayed release (DR/EC) 81 mg PO BID Qty: 60 0RF acetaminophen 500 mg tablet 1,000 mg PO TID Qty: 90 3RF pantoprazole 40 mg tablet,delayed release (DR/EC) 40 mg PO DAILY Qty: 30 0RF dexamethasone 4 mg tablet 4 mg PO DAILY Qty: 2 0RF oxycodone 5 mg tablet 5 mg PO Q4H MDD 6 tabs PRN (Reason: pain) Qty: 20 0RF Continued atorvastatin 20 mg tablet 20 mg PO DAILY sildenafil [Viagra] 100 mg tablet 100 mg PO DAILY PRN Rx Instructions: administer 30 minutes to 4 hours before activity losartan 25 mg tablet 25 mg PO DAILY Discharge Instructions Additional Instructions: Total Hip Discharge Instructions Activity: The most important activity is to walk. You should try to take short walks a few times a day. You have no restrictions on movement or positioning, but do not try to force what you do. You will find some stiffness and weakness with hip flexion (lifting your knee). Do not try to strengthen this too early, continue to practice walking and stairs and this will come. - Outpatient physical therapy can be helpful to help return you to a normal gait and improve your flexibility and strength. This can start around 2 weeks. For some patients, it?s not necessary. Usually this is determined at the time of discharge or at the first post-operative visit. - You should wear the BLAKE hose on both legs for 2 weeks. Dressing: Keep the surgical dressing in place for at least one week. After the first week it may be removed and replace with light gauze and tape or nothing. It may get wet after 3 days but avoid soaking the dressing. If it gets wet, just lightly pat dry. It is important to always keep some gauze between skin folds, especially when you are sitting. Spend some time with the wound exposed when you are lying flat as the incision does wrinkle onto itself. Medications: - You should take Tylenol and an anti-inflammatory Celebrex as your primary pain control medications. If the Celebrex is too expensive or not covered, please call the office for another alternative (Advil/Ibuprofen or Naproxen/Aleve). - You have been prescribed a stronger pain medication Oxycodone for breakthrough pain, take as needed as prescribed. - You have also been prescribed a stomach acid reduction agent Pantoprozole to help reduce stomach acid and reflux. - You have also been prescribed Decadron to help with post-operative nausea and pain. You will take this for two days starting tomorrow. - You will be taking Aspirin 81mg twice a day for DVT prevention unless instructed otherwise. - If you have constipation you should take Colace or Miralax (both [id number]). It takes most people 3-4 days to have a bowel movement. Follow-up: 2 weeks If you have any acute concerns or questions, please do not hesitate to contact the office at [phone]. You may contact Dr. Coleman with any questions after hours through the hospital at [phone] or on his cell phone at [phone]. Referrals: Michael Coleman MD [ [facility] STAFF PHYSICIAN] - Equipment/Supplies: Walker Activity:: Activity as Tolerated Shower/Bathe:: 72 hours Diet:: As Tolerated Discharge Orders Discharge Orders: Discharge Order (Routine); Ordered 01/08/24 Ordered By: Chencho Jones DS: Diagnosis Discharge Diagnosis (1) Osteoarthritis of right hip: Status: Chronic
[2024-01-08] MEDS: ceFAZolin 2 GM/50 ML BAG IVPB (07:39)
[2024-01-08] MEDS: TRANEXAMIC ACID/SOD. CHL. 1,000 MG/100 ML BAG 600 MG IVPB (08:00)
--- NOTE | 2024-01-08 09:10 | DI.RAD_ITS ---
Exam(s) XR HIP RT IN OR EXAM: XR HIP RT IN OR CLINICAL HISTORY: RIGHT HIP OA. TECHNIQUE: 2D and realtime digital imaging was performed. COMPARISON: CR XR PELVIS AP from 12/23/2023 FINDINGS: Hard copy images show placement of a right hip prosthesis. The alignment appears satisfactory. Please see procedure note for details. Fluoro time: 43seconds RADIATION DOSE DELIVERED: Ka,r=6.7 mGy
--- NOTE | 2024-01-08 09:18 | ROE_ITS ---
Date of service: 01/08/24 Time of Service: 07:50 Operative Note Operative Note PRE-OP DIAGNOSIS: Right Hip Osteoarthritis POST-OP DIAGNOSIS: same PROCEDURE: Right Anterior Total Hip Arthroplasty with Intraoperative Navigation SURGEON: Michael Coleman MERCHANDISE PROCESSOR: Chencho Jones ANESTHESIA TYPE: General LMA/ETT Refer to Anesthesia Record ESTIMATED BLOOD LOSS: 200 PATHOLOGY: none sent TOURNIQUET TIME: 0 COMPLICATIONS: None Patient was transported to: PACU Patient's condition: stable Implants: 1. Depuy [employer] Acetabular Component, 54mm 2. Depuy Acetabular Liner, [id number] 3. Depuy Actis Standard Collared Femoral Stem, Size 6 4. Depuy Altrx Ceramic Femoral Head, Size 36+5mm Indications: I have seen Bunny in clinic for symptoms of severe hip arthritis, confirmed with radiographic findings. He has exhausted nonoperative methods and was having significant limitations in daily function and desired better function and less pain. I discussed the technical details of a hip replacement. I explained the risks of the procedure to include, but not limited to, bleeding, infection, pain, stiffness, fracture, damage to nerves and vessels, damage to muscles and tendons, loosening, instability, leg length inequality, need for repeat procedure, blood clot and cardiopulmonary demise. Despite these risks, Bunny elected to proceed. Findings: There was significant signs of arthritis throughout the hip with notable deformity of the femoral head and acetabular osteophyte. Procedure Description: Bunny was greeted in the preoperative holding area where the correct side was identified and marked. The consent was reviewed with the patient and signed. The history and physical was updated. All questions were answered. He was taken back to the operating room. A spinal anesthestic was then attempted but unsuccessful and thus he was converted to a general anesthetic. The feet were wrapped with cast padding and Coban and then placed into the boot liners and then into the boots. Care was taken to protect the skin and make sure the heels were fully down and the boots were stable. The patient was then positioned onto the HANA table. Both legs were held in a neutral position. SCDs were applied. The patient was then slid down onto a peroneal post. Prophylactic antibiotics in the form of Cefazolin were administered. 1g of Tranxemic Acid was given intravenously within 30 minutes of incision. The right leg was then prepped with Chloraprep and draped in a standard fashion. A second prep with Chloraprep was performed prior to placement of a shower-curtain type drape with Iodine impregnated skin protection. A timeout to confirm correct identity, side and site, procedure, allergies, anesthesia, and medical concerns was performed. An obliquely oriented incision was made starting lateral to the ASIS and running distal over the Tensor Fascia Chelsey (TFL) muscle belly toward the fibular head, approximately 10cm. The skin and soft tissue was dissected sharply, through Neetu?s fascia, and to the fascia of the TFL. With the fascia and superior border of the IT band identified, the fascia was incised with a new knife just above any perforators from the IT band. The TFL muscle belly was bluntly dissected away from the fascia and moved laterally. The fat between TFL and rectus was identified to ensure the dissection was not within the TFL. Blunt di ssection created space between abductors and the capsule and retractor was placed over the lateral femoral neck. The fibers of the rectus femoris tendon were identified and these were freed from the anterior capsule. A second cobra retractor was placed around the medial femoral neck. The TFL was further retracted laterally to show the deep fascia. Careful dissection through this layer identified three main crossing vessels of the lateral femoral circumflex. These were cauterized in multiple locations and then cut without any noticeable bleeding. The TFL was further released bluntly from the deep fascia to expose anterior hip capsule and fat The soft tissue orthopaedic retractor was then placed beneath the TFL and against sartorius and medial soft tissues to protect and retract the soft tissues. A T-capsulotomy was then performed starting at the superior lateral acetabulum and moving distally to the intertrochanteric ridge. These capsular flaps were tagged with a No. 1 Ethibond and elevated from within. The capsular flaps were released to the shoulder of the lateral neck and to the lesser trochanter to give excellent visualization of the proximal femur. A neck osteotomy was performed using an oscillating saw based on preoperative templates. This cut started in the shoulder and of the lateral neck and exited medially. The saw was at all times directed medially to avoid injury to the greater trochanter. Gross traction was applied to the leg and the osteotomy opened. The femoral head was removed with a corkscrew, making sure to protect the TFL on its exit. There was notable deformity of the femoral head. Traction was released after head removal. This was measured on the back table to determine the starting reamer size. Portions of the rectus obscuring v isualization were minimally elevated off the superior acetabulum. An anterior retractor was placed over the anterior wall between capsule and labrum and attached to the Gripper retraction system. The femur was rotated to 90 degrees and medial capsule was fully released until the lesser trochanter was palpable and visible; the femur was returned to 30 degrees. A posterior retractor was placed similarly between capsule and labrum. This provided excellent visualization. The contents of the cotyloid fossa were removed with electrocautery and the labrum was removed with a knife. There was a notable floor osteophyte. There was significant chondromalacia of the superior acetabulum. Acetabular reaming began with a 48mm reamer. This first reaming was directed anterior to posterior and medial to get down to the true floor. This was inspected and reamed until the true floor was reached. The anterior retractor was then released and entry and exit was provided by traction on the capsular flaps. I then reamed sequentially up to a 54mm reamer where good fit was obtained. The larger reamers were oriented based on anatomical reference of the anterior and lateral trinidad to ensure proper abduction and anteversion. Positioning and size was confirmed with the fluoroscopy. A 54mm Depuy [employer] acetabular component was selected. The acetabulum was reamed around the periphery with the selected acetabular size to prevent a rim fit. The deep tissues were irrigated. The acetabular component was then impacted in a position of about 40-45 degrees of abduction and 15-20 degrees of anteversion, using the patient?s anatomy as the ultimate landmark. Fluoroscopy was used to confirm this. There was excellent adjunct instructor of the acetabular component and the inserting handle was removed. The acetabular liner, Depuy [id number] polyethylene liner, was inserted and lined up with the tines of the acetabular component. There was no soft tissue interposition. The liner was then impacted into position and confirmed to be well-seated. A portion of the kyle-articular cocktail was then injected around the acetabulum into the capsule and periosteum. This cocktail consisted of 123mg of Ropivacaine, 0.25mg of Epinephrine, 0.04mg of Clonidine, and 15mg of Ketorolac, diluted to 50cc. The leg was rotated to 120 degrees. Any remaining medial capsule was released until the lesser trochanter was easily palpable. A retractor was placed medially. The lateral capsule was further released into the shoulder to allow access to the greater trochanter. A Alberto retractor was placed over the g reater trochanter which allowed the trochanter to flip in front of the capsule for excellent exposure. The leg was brought down into maximal extension and 20 degrees of adduction while ensuring there was no impingement on the acetabulum. Any remnant capsule within the trochanter was released. Piriformis and obturator externis were identified and protected. There was excellent access to the proximal femur. The lateral neck remnant was removed with a rongeur. A blunt canal probe was used to identify the canal and trajectory for later broaching. A box osteotome initiated the broach course. A small curved rasp and a curved curette were used to work laterally. Broaching then began with a starter Actis broach. This was inserted manually around the trochanter and into the canal before mallet blows. The broach was seated to the neck cut level based on the neck cut and the preoperative template. Sequential broaching was continued with the Cogniose pneumatic broaching device until a tight fit was obtained with good rotational control of the femur. A trial standard neck was inserted along with a +5 trial head. The leg was brought out of extension and adduction and then reduced with traction and internal rotation. The leg was stable anteriorly in a position of 30 degrees of extension and 90 degrees of external rotation. Fluoroscopy was used to ensure there was no fracture and the stem was seated well. Leg lengths were checked with an AP pelvis and pelvic reference points. Pusher navigation system was used to confirm appropriate positioning and leg length and offset. Once content with the desired offset and leg lengths, the leg was brought back into extension, external rotation and adduction. The periosteum and surrounding tissue was injected with remaining portion of the kyle-articular cocktail. The proximal femur was irrigated as well as the deep tissues. The [employer] Actis standard collared stem, size 6, was then manually inserted into the proximal femur making sure to control rotation. It was then malleted into position with light blows, giving breaks to allow bone expansion and decrease risk of fracture. The selected Depuy Altrx Ceramic Head, size 36+5mm, was then placed onto the clean and dry trunnion and secured with impaction onto the tapered fit. The leg was brought back out of extension and adduction and reduced with traction and internal rotation. Stability was confirmed with no shuck at 90 degrees of external rotation and 30 degrees of extension. No impingement through range of motion arc. Final x-ray images were obtained with fluoroscopy to confirm adequate positioning and no intraoperative fracture. The deep tissues were thoroughly irrigated with Surgiphor, betadine solution. This was allowed to sit in the wound for 3 minutes before being thoroughly irrigated out with normal saline. The capsule was then reapproximated with the previously placed Ethibond sutures. The TFL fascia was finally closed with a No . 2 Stratafix, barbed suture. Deep tissues were then reapproximated with 0 Vicryl and a running 2-0 Vicryl. The skin was closed with a running 4-0 Monocryl in a subcuticular fashion. This was reinforced with skin glue. A Mepilex silver dressing was applied. At the end of the case, all counts were correct. Bunny was transferred to the hospital bed without difficulty and suffering no apparent complication. Bunny has a good prognosis. Physical therapy will start today and without restrictions, weight-bearing as tolerated. Aspirin 81mg BID will be used for DVT prophylaxis.
--- NOTE | 2024-01-08 10:24 | W.ANESPOSTOP ---
Postoperative Evaluation Date, Time and Location Date Performed: 01/08/24 Time Performed: 10:18 Patient Location: PACU Vital Signs Most Recent Imported Vital Signs: Most Recent Vital Signs Temp Pulse Resp BP Pulse Ox 36.3 C L 51 L 11 L 180/92 H 99 01/08/24 10:15 01/08/24 10:16 01/08/24 10:16 01/08/24 10:16 01/08/24 10:15 Pain Score Most Recent Pain Score: Most Recent Pain Score Pain Level 0 01/08/24 10:15 Assessment Mental Status: Awake (Alert & Oriented to Patient Baseline) Airway and Respiratory Function: Patent airway with normal (patient baseline) respiratory exam Cardiovascular Function: Hemodynamically Stable Hydration Status: Adequately Hydrated Nausea & Vomiting: No Nausea or Vomiting Pain: Pt. Denies Any Pain Peripheral Nerve Block: Patient did not receive a nerve block
--- NOTE | 2024-01-08 12:52 | IN_ITS ---
PT Notes Visit Reasons: R THR Physical Therapy Day Surgery Initial Evaluation Date:01/08/2024 Referring Doctor: Dr Coleman PT Orders: PT CONSULT: s/p Ortho Surgery Precautions: WBAT RLE, TEDS x 2 weeks Patient Profile/Admitting Diagnosis: Patient is 63-year-old male presenting status post elective right CROW due to OA on 01/08/[address] Coleman under general anesthesia. PMHX: HTN, Prediabetes, HLD, OA right hip Social History/Home Situation: Pt resides with in 2 story home with 2 MARTINE without rail. Pt Independent ambulation without device. Pt Independent with ADLs, meal prep, shopping, house hold management, medication management, iADLs. (+) drives. Equipment Owned/DME: raised toilet seat, Pt fitted for FWW provided by [employer] Subjective: Pt reports feeling slight grogginess and intermittent dizziness if he moves his head fast when walking. reports he will be staying on the first floor . She reports she will be home with him and feels comfortable providing CGA/ close supervision for ambulation at home and on stairs initially. Objective: General Observation: male semireclined on stretcher with ice to right hip, BP initially 170/91 after sit 5 mins 155/85 Mental Status: alert, delayed response to some questions oriented x 3 Pain: 2/5 right hip ROM: Right Upper Extremity: WNL Left Upper Extremity: WNL Right Lower Extremity: WNL except hip flexion 90 and abduction 15 degrees Left Lower Extremity: WNL Strength: Right Upper Extremity:5/5 Left Upper Extremity: 5/5 Right Lower Extremity: hip flexion 3-/5 hip abduction 3-/5 hip extension3-/5 ,knee extension 3/5,knee flexion 3-/5, ankle 3/5 Left Lower Extremity: 5/5 Sensation: intact Bed Mobility/Transfers: Supine to sit supervision Sit to stand supervision Stand to sit supervision Bed to chair with FWW close supervision Gait: ambulate with FWW 150 feet CGA/close supervision step to pattern initially then able to progress to reciprocal pattern. Pt demonstrates slight LOB /unsteady with head turning while walking. increase wt shift to the left Stairs: 2 steps with 2 rails Supervision step to pattern with continuous cues for sequencing 2 steps with 1 rail on the right step to pattern CGA and continuous cues for sequencing Balance: Static Sitting: Normal Dynamic Sitting: Good - Static Standing: Fair with FWW Dynamic Standing:Fair with FWW Special Tests: Mobility Limitations Standardized Measure [facility] AM-PAC 6 clicks Basic Mobility Inpatient Short Form: Raw Score:19 CMS Score:41.77% Informed Consent/Education: Patient instructed in purpose of PT consult. Packet containing CROW exercise protocol has been given to patient. Education and training on initial set of exercises that can be done at home have been completed with patient. demonstrates ability to provide contact-guard assist on stairs and during gait to ensure stability status post anesthesia. Assessment: Patient presents with clinical signs and symptoms consistent with current/admitting diagnoses that have resulted to mobility limitations, gait instability, generalized weakness, and impairment of motor control as demonstrated by the following impairment level findings: 1. Decreased strength to right hip major muscle groups 2. Impaired standing balance 3. Limitation of joint range of motion in right hip 4. Increased pain right hip Impairments are contributing to the following functional limitations: 1. Inability to safely ambulate without assistive device 2. Increase completion time for mobility ADL performance 3. Increased fall risk 4. Impaired ability to perform stairs safely without assistance Patient is assessed as a moderate complexity based on the following: History: 63 -year-old male with impairment level findings, functional limitations, and past medical history as indicated above Examination: Demonstrable impairment in strength, balance, and mobility level with underlying impairments and functional limitations as documented above Presentation: stable Decision Making: moderate Goals: N/A. Plan of Care/Treatment Plan: N/A. DISCHARGE RECOMMENDATIONS: Home with with HEP. to provide supervision/contact-guard for mobility for first 24 to 48 hours status post anesthesia for safety due to loss of balance with head turning TREATMENT CODE/TIME: 73395 x 1unit, 08687 x 14 mins for 1 unit/ [id number] Thank you for the opportunity to participate in the care of this patient. Sayra Estrada PT Please sign an return this page within 30 days if you agree with the above POC. Thank you! Physician Signature Date [facility]
== END 2024-01-08 12:30 | disposition home or self-care (01) ==
PROVIDERS: PCP Internal Medicine; Visit Provider Student in an Organized Health Care Education/Training Program
PROC: (CPT 27130; principal; 2024-01-08 07:30)
DX: M16.11 Unilateral primary osteoarthritis, right hip (principal); R73.03 Prediabetes; I10 Essential (primary) hypertension; E78.5 Hyperlipidemia, unspecified
CPT/HCPCS: 20985; 27130; 97162; 97530; 73501; C1776; J0690; J1100; J2003; J2250; J2401; J2405; J2704; J3010

== ENCOUNTER 2024-01-20 14:14 | Outpatient (CLI) | payer MEDICARE, MEDICAID, SELFPAY ==
--- NOTE | 2024-01-20 08:45 | DI.RAD_ITS ---
Exam(s) XR HIP RT COMPLETE AP PELVIS EXAM: XR HIP RT COMPLETE AP PELVIS CLINICAL HISTORY: 1ST POST OP S/P R CROW. TECHNIQUE: 2D digital imaging was performed. Two images were obtained. AP pelvis and lateral hip vi ews were obtained. COMPARISON: CR XR HIP RT COMPLETE AP PELVIS from 09/19/2023 CR XR PELVIS AP from 12/23/2023 XA XR HIP RT IN OR from 01/08/2024 FINDINGS: BONES: There are stable post operative changes of a right total hip arthroplasty present. No fractur e or dislocation. JOINTS: The orthopedic hardware is in good position. No evidence of hardware loosening. SOFT TISSUE: Surgical clips are seen inferior to the pelvis which can be seen with prior vasectomy. IMPRESSION: Stable right total hip arthroplasty. DATA REPOSITORY: RADIATION DOSE DELIVERED:
== END 2024-01-20 14:15 | disposition home or self-care (01) ==
LOC: DIORS 14:14
PROVIDERS: PCP Internal Medicine; Visit Provider Student in an Organized Health Care Education/Training Program
DX: Z96.641 Presence of right artificial hip joint (principal); Z47.1 Aftercare following joint replacement surgery
CPT/HCPCS: 99024; 73502

== ENCOUNTER → 2024-02-17 09:39 | Outpatient (BNVA) | payer MEDICARE, MEDICAID, SELFPAY | PROVIDERS: PCP Internal Medicine; Referring Provider Internal Medicine; Visit Provider Physician Assistant | DX: Z47.1 Aftercare following joint replacement surgery (principal); Z96.641 Presence of right artificial hip joint | CPT/HCPCS: 99024 ==

== ENCOUNTER 2025-01-11 11:05 | Outpatient (CLI) | payer MEDICARE, MEDICAID, SELFPAY ==
--- NOTE | 2025-01-11 09:00 | DI.RAD_ITS ---
Exam(s) XR HIP PELVIS ADULT BL EXAM: XR HIP PELVIS ADULT BL CLINICAL HISTORY: LEFT HIP PAIN. TECHNIQUE: 2D digital imaging was performed. Three views. COMPARISON: CR XR HIP RT COMPLETE AP PELVIS from 01/20/2024 FINDINGS: BONES: No acute fracture is present. No bony destructive lesion is seen. JOINTS: No dislocation present. No change in appearance of right hip prosthesis. Mild degenerative changes of left hip. SI joints and pubic symphysis are unremarkable. SOFT TISSUE: Vasectomy clips. IMPRESSION: Stable appearance of right hip prosthesis. Stable mild degenerative changes of the left hip. DATA REPOSITORY: RADIATION DOSE DELIVERED:
--- NOTE | 2025-01-11 09:00 | DI.RAD_ITS ---
Exam(s) XR KNEE LT 4V AP,LAT,KORTNEY,PAT EXAM: XR KNEE LT 4V AP,LAT,KORTNEY,PAT CLINICAL HISTORY: bilat knee pain. TECHNIQUE: 2D digital imaging was performed. 4 views. COMPARISON: CR XR KNEE RT 3V AP,LAT,KORTNEY from 09/19/2023 FINDINGS: BONES: No acute fracture is present. No bony destructive lesion is seen. JOINTS: Severe narrowing of the lateral femoral tibial joint space, causing mild valgus angulation. Medial femoral tibial joint space is maintained. There is mild narrowing of the patellofemoral joint which also shows periarticular spurring. No joint effusion is seen. SOFT TISSUE: Normal. IMPRESSION: Severe degenerative changes of the lateral femoral tibial joint DATA REPOSITORY: RADIATION DOSE DELIVERED:
--- NOTE | 2025-01-11 09:00 | DI.RAD_ITS ---
Exam(s) XR KNEE RT 4V AP,LAT,KORTNEY,PAT EXAM: XR KNEE RT 4V AP,LAT,KORTNEY,PAT CLINICAL HISTORY: BILAT KNEE PAIN. TECHNIQUE: 2D digital imaging was performed. Four views. COMPARISON: CR XR KNEE RT 3V AP,LAT,KORTNEY from 09/19/2023 FINDINGS: BONES: No acute fracture is present. No bony destructive lesion is seen. JOINTS: Moderate to severe narrowing of the femoral tibial joint spaces with periarticular spurring. Mild lateral patellofemoral joint space narrowing. Spurring at the margins of the patellofemoral joint. A small joint effusion is seen. SOFT TISSUE: Normal. IMPRESSION: stable advanced degenerative changes of the femoral tibial joints. DATA REPOSITORY: RADIATION DOSE DELIVERED:
== END 2025-01-11 11:06 | disposition home or self-care (01) ==
LOC: DIORS 11:06
PROVIDERS: PCP Internal Medicine; Referring Provider Internal Medicine; Visit Provider Student in an Organized Health Care Education/Training Program
DX: Z47.1 Aftercare following joint replacement surgery (principal); Z96.641 Presence of right artificial hip joint; M16.12 Unilateral primary osteoarthritis, left hip; M17.0 Bilateral primary osteoarthritis of knee
CPT/HCPCS: 99214; 73521; 73564